=== PATIENT | male | born 1965 | race Caucasian/White ===

== ENCOUNTER → 2018-04-15 | Outpatient (CLI) | payer OTHER ==
--- NOTE | 2018-04-15 08:45 | RAD ---
Ankle-brachial indices, 04/15/2018: HISTORY: Claudication Resting MANN measurements were obtained. The right MANN is mildly decreased at 0.79. The left MANN of 0.95 is within normal limits. Electronically signed by: Carlos Mc MD (04/15/2018 8:43 AM) [facility]
== END | disposition home or self-care (01) ==
LOC: US 07:13
PROVIDERS: ATTEND Family Medicine
DX: I73.89 Other specified peripheral vascular diseases (principal)
CPT/HCPCS: 93922

== ENCOUNTER → 2018-04-23 | Outpatient (CLI) | payer OTHER ==
--- NOTE | 2018-04-23 09:52 | RAD ---
MRI Cervical Spine Without Contrast History: Neck pain, worsening left arm radiculopathy Technique: Multiplanar, multi sequential noncontrast MR imaging was performed of the cervical spine. Comparison: None Findings: Cervical vertebral body stature and AP alignment are within normal limits. Cervical cord caliber is within normal limits without significant focal signal abnormality. There is no significant abnormality of the cervical medullary junction. There is pwnw-xy-kutnmztt T2 and STIR hyperintense signal abnormality of the visualized clark. There is mild degenerative disc disease at C6-7, mild disc desiccation at more superior levels. There is no significant marrow edema. Not fully included, there is at least moderate right maxillary sinus mucosal thickening. C2-C3: Spinal canal and neural foramina are adequate. C3-C4: Neural foramina and spinal canal are adequate. C4-C5: There is very shallow posterior central protrusion. Neural foramina and spinal canal are adequate. There is mild facet degenerative change. C5-C6: There is minimal posterior disc osteophyte complex and bulge. Central canal is adequate about 12 mm. There is bilateral facet degenerative change. There is mild uncovertebral degenerative change. There is minimal narrowing of the right neural foramen, ancq-ru-ksigqyvp narrowing on the left. C6-C7: There is posterior protrusion greatest centrally and in the left lateral recess, possibly very small extrusion extending above the intervertebral disc space. There is indentation upon the ventral thecal sac, central canal adequate about 11 to 12 mm, mild left lateral recess stenosis. There is also extent of protrusion to the anterior left neural foramen, severe narrowing of the left neural foramen. There is also mild uncovertebral degenerative change greater on the left. Right neural foramen is overall adequate. C7-T1: Spinal canal is adequate. There is mild uncovertebral degenerative change. There is mild neural foramina compromise bilaterally. Impression: 1. There is protrusion and possibly very small extrusion extending above the C6-7 intervertebral disc space resulting in mild left lateral recess stenosis, also contributes to severe narrowing of the left C6-7 neural foramen. There is spev-fy-gylxtgpl left and mild right C5-C6 neural foramina compromise due to facet and uncovertebral degenerative change, minimal narrowing bilaterally at C7-T1. There is mild degenerative disc disease C6-7. 2. There is mild to moderate T2 and STIR hyperintense signal of the visualized clark, nonspecific findings possibly due to chronic microvascular ischemic disease unless there is history or suspicion for inflammatory demyelinating disease. 3. There is at least moderate mucosal thickening of the visualized right maxillary sinus. Electronically signed by: Mitch Arroyo MD (04/23/2018 9:48 AM) [id number]
== END | disposition home or self-care (01) ==
LOC: MRI 08:32
PROVIDERS: ATTEND Family Medicine
DX: M50.323 Other cervical disc degeneration at C6-C7 level (principal); J34.89 Other specified disorders of nose and nasal sinuses; M48.03 Spinal stenosis, cervicothoracic region; M48.02 Spinal stenosis, cervical region; M50.221 Other cervical disc displacement at C4-C5 level
CPT/HCPCS: 72141

== ENCOUNTER → 2019-08-01 | Outpatient (CLI) | payer OTHER ==
--- NOTE | 2019-08-01 12:16 | RAD ---
MRI Lumbar Spine without contrast History: Low back pain, right leg weakness Technique: Multiplanar, multi sequential noncontrast MR imaging was performed of the lumbar spine. Comparison: None Findings: Lumbar vertebral body stature is maintained. There is minimal posterior subluxation L5 relative to S1. Conus terminates at the superior aspect L1. There is posterior annular tear L4-5, small anterior annular tears L2-3 through L5-S1. There is moderate to severe degenerative disc disease L5-S1, tgbe-ey-xlwotwtd L4-5 degenerative disc disease. There is small hemangioma of the left L2 vertebral body inferiorly. There is degenerative endplate change greater on the left L5-S1, trace associated edema likely degenerative in etiology. L1-L2: This level was not included on the axial images, spinal canal and neural foramina overall adequate. L2-L3: Neural foramina and spinal canal are adequate. L3-L4: There is mild buckling of the ligamentum flavum. Neural foramina and spinal canal are adequate. L4-L5: There is a posterior protrusion greatest centrally up to about 2 to 3 mm AP. There is minimal buckling of the ligamentum flavum. There is mild narrowing of the far lateral recesses bilaterally. There is very mild inferior neural foramina compromise greater on the left by minimal disc osteophyte complex L5-S1: There is posterior bulge about 2-3 mm AP superimposed on the posteriorly subluxed L5 vertebral body margin. Bulge is near the descending S1 nerve roots greater on the left without significant displacement. There is very mild narrowing of the far left lateral recess. There is mild left facet degenerative change. There is minimal disc osteophyte complex in the inferior neural foramina greater on the left. There is mild to moderate narrowing of the left neural foramen, mild overall narrowing on the right. Disc osteophyte complex is near the undersurfaces of the exiting L5 nerve roots bilaterally without significant displacement. Impression: 1. There is degenerative disc disease greatest at L5-S1 and to lesser degree at L4-5. There is mild narrowing of the far lateral recesses bilaterally at L4-5, very mild narrowing of the left lateral recess at L5-S1 as described. 2. There is jyoh-jd-yhztqgvt left and mild right L5-S1 neural foramina compromise, very mild narrowing of the L4-5 neural foramina greater on the left. 3. There is minimal posterior subluxation L5 relative to S1. Electronically signed by: Mitch Arroyo MD (08/01/2019 12:13 PM) [facility]
== END | disposition home or self-care (01) ==
LOC: MRI 10:42
PROVIDERS: ATTEND Family Medicine
DX: M51.37 Other intervertebral disc degeneration, lumbosacral region (principal); M51.27 Other intervertebral disc displacement, lumbosacral region; M47.817 Spondylosis without myelopathy or radiculopathy, lumbosacral region; M48.07 Spinal stenosis, lumbosacral region
CPT/HCPCS: 72148

== ENCOUNTER 2020-06-12 15:42 | Emergency (ER) | payer OTHER ==
[~2020-06-12] VITALS: Ht 175.3 cm; Wt 72.7 kg
--- NOTE | 2020-06-12 16:46 | PHYS DOC ---
Past Medical History Past Medical History: High Cholesterol, Hypertension, PR, Other Additional Past Medical Histor: HEP C Past Surgical History: Angioplasty, Other Additional Past Surgical Histo: HEART STENT X 1 2016 Smoking Status: Current Every Day Smoker Alcohol Use: None General Adult EDM: Chief Complaint: LOWER EXT PAIN HPI: HPI: Patient is a 55 year old male patient presents with right lower leg pain, swe lling, erythema. States he had a stent placed in his leg approximately 6 years ago and feels it may be blocked. States he has had some increased discomfort when walking, increased swelling in his feet, with some redness on his feet as well. States has been taking his pain medication which have been helping a little bit, however he continues to have discomfort. Denies any trauma, states he has started his primary care but they are unable to see him for another 2 weeks Review of Systems: Review of Systems: Constitutional: Denies fever or chills. [] Eyes: Denies change in visual acuity. [] HENT: Denies nasal congestion or sore throat. [] Respiratory: Denies cough or shortness of breath. [] Cardiovascular: Denies chest pain or edema. [] GI: Denies abdominal pain, nausea, vomiting, bloody stools or diarrhea. [] : Denies dysuria. [] Musculoskeletal: Denies back pain or joint pain. Reports pain to distal right foot [] Integument: Denies rash. States redness to his right foot [] Neurologic: Denies headache, focal weakness or sensory changes. [] Endocrine: Denies polyuria or polydipsia. [] Lymphatic: Denies swollen glands. [] Psychiatric: Denies depression or anxiety. [] Heart Score: Risk Factors: Risk Factors: DM, Current or recent (<one month) smoker, HTN, HLP, family history of CAD, obesity. Risk Scores: Score 0 - 3: 2.5% MACE over next 6 weeks - Discharge Home Score 4 - 6: 20.3% MACE over next 6 weeks - Admit for Clinical Observation Score 7 - 10: 72.7% MACE over next 6 weeks - Early Invasive Strategies Physical Exam: PE: Constitutional: Well developed, well nourished, no acute distress, non-toxic appearance. [] HENT: Normocephalic, atraumatic, bilateral external ears normal, oropharynx moist, no oral exudates, nose normal. [] Eyes: PERRLA, EOMI, conjunctiva normal, no discharge. [] Neck: Normal range of motion, no tenderness, supple, no stridor. [] Cardiovascular:Heart rate regular rhythm, no murmur [] Lungs & Thorax: Bilateral breath sounds clear to auscultation [] Abdomen: Bowel sounds normal, soft, no tenderness, no masses, no pulsatile masses. [] Skin: Warm, dry, superior aspect of right distal foot noted erythematous, delayed capillary refill. Foot feels warm. Unable to palpate pedal pulse[] Back: No tenderness, no CVA tenderness. [] Extremities: No tenderness, no cyanosis, no clubbing, ROM intact, no edema. Full ROM noted to foot, toes. Negative Rehan's sign. [] Neurologic: Alert and oriented X 3, normal motor function, normal sensory function, no focal deficits noted. [] Psychologic: Affect normal, judgement normal, mood normal. [] Current Patient Data: Vital Signs: Vital Signs Date Time Temp Pulse Resp B/P (MAP) Pulse Ox O2 Delivery O2 Flow Rate FiO2 06/12/20 15:59 98.1 88 17 159/77 (104) 97 Room Air 98.1 EKG: EKG: [] Radiology/Procedures: Radiology/Procedures: PROCEDURE: VENOUS LOWER EXTREMITY RIGHT Exam: Right lower extremity venous duplex study INDICATION: Leg swelling TECHNIQUE: Using a combination of real-time ultrasound imaging and color-flow and pulse Doppler imaging techniques along with graded compression and augmentation, duplex evaluation of the deep venous systems of rightlower extremity was performed. Multiple images were obtained. Findings: There is no sonographic evidence for deep venous thrombosis involving the visualized deep venous structures of the right lower extremity. IMPRESSION: No acute DVT in the right lower extremities. Electronically signed by: Flavio Santamaria MD (06/12/2020 5:27 PM) [facility] [] Course & Med Decision Making: Course & Med Decision Making Pertinent Labs and Imaging studies reviewed. (See chart for details) [] Reviewed imaging results with patient and family, without noted blood clots today for ultrasound. Patient does have a follow-up appointment with cardiology on June 24 and for further imaging on his legs and arteriogram. Patient had seen podiatry earlier today, and has plan to follow-up with them tomorrow regarding additional evaluation of his foot concerns. Will provide patient pain medication with plan for patient to follow-up tomorrow with podiatry Laury Disclaimer: Laury Disclaimer: This electronic medical record was generated, in whole or in part, using a voice recognition dictation system. Departure Departure Impression: Primary Impression: Left foot pain Disposition: 01 DC HOME SELF CARE/HOMELESS Condition: GOOD Referrals: JOSEMANUEL ORTEGA MD (PCP) Patient Instructions: Pain, Neuropathic Additional Instructions: As discussed, take the pain medication as prescribed. Keep your follow-up appointments with cardiology later this month, consult podiatry tomorrow. We did a venous Doppler ultrasound on your leg today, which did not show any abnormalities. Scripts Tramadol Hcl (TRAMADOL HCL) 50 Mg Tablet 50 MG PO Q6HRS PRN for PAIN for 3 Days, #12 TAB Prov: MELITON VIGIL APRN 06/12/20 MELITON VIGIL APRN Jun 12, 2020 16:46
--- NOTE | 2020-06-12 17:30 | RAD ---
Exam: Right lower extremity venous duplex study INDICATION: Leg swelling TECHNIQUE: Using a combination of real-time ultrasound imaging and color-flow and pulse Doppler imaging techniques along with graded compression and augmentation, duplex evaluation of the deep venous systems of rightlower extremity was performed. Multiple images were obtained. Findings: There is no sonographic evidence for deep venous thrombosis involving the visualized deep venous structures of the right lower extremity. IMPRESSION: No acute DVT in the right lower extremities. Electronically signed by: Flavio Santamaria MD (06/12/2020 5:27 PM) [facility]
[2020-06-12 18:04] LABS: BASO % 1 % (0-3); EOS # 0.1 x10^3/uL (0.0-0.7); EOS % 2 % (0-3); HEMATOCRIT 38.5 % (39.0-53.0); HEMOGLOBIN 13.1 g/dL (13.0-17.5); LYMPH # 1.5 x10^3/uL (1.0-4.8); LYMPH % 29 % (24-48); MEAN CORPUSCULAR HEMOGLOBIN 33 pg (25-35); MEAN CORPUSCULAR HGB CONC 34 g/dL (31-37); MEAN CORPUSCULAR VOLUME 96 fL (79-100); MONO # 0.6 x10^3/uL (0.0-1.1); MONO % 12 % (0-9); NEUT % 57 % (31-73); PLATELET COUNT 131 x10^3/uL (140-400); RED CELL DISTRIBUTION WIDTH 13.3 % (11.5-14.5); WHITE BLOOD COUNT 5.2 x10^3/uL (4.0-11.0)
[2020-06-12 18:18] LABS: CALCIUM 9.8 mg/dL (8.5-10.1); CREATININE 0.7 mg/dL (0.7-1.3); GFR 116.7; POTASSIUM 4.1 mmol/L (3.5-5.1)
[2020-06-12 18:24] LABS: ALBUMIN 3.6 g/dL (3.4-5.0); ALBUMIN/GLOBULIN RATIO 1.1 (1.0-1.7); TOTAL BILIRUBIN 0.2 mg/dL (0.2-1.0); URIC ACID 4.2 mg/dL (3.5-7.2)
[2020-06-12] MEDS ORDERED: TRAM50TA PO ×2 (18:43→18:44)
[2020-06-12 18:45] VITALS: BP 147/83
== END 2020-06-12 18:51 | disposition home or self-care (01) ==
LOC: ER 15:42 → MERGE 15:42 → ER 18:51
DX: M79.672 Pain in left foot (principal); E78.00 Pure hypercholesterolemia, unspecified; I10 Essential (primary) hypertension; I25.2 Old myocardial infarction; F17.200 Nicotine dependence, unspecified, uncomplicated; Z95.5 Presence of coronary angioplasty implant and graft
CPT/HCPCS: 36415; 80053; 84550; 85025; 93971; 99285-25

== ENCOUNTER → 2020-06-13 | Outpatient (CLI) | payer OTHER ==
[2020-06-12 18:45] VITALS: BP 147/83
[~2020-06-13] MED LIST: TRAM50TA PO
--- NOTE | 2020-06-13 17:04 | RAD ---
INDICATION: Reason: Peripheral Arterial Disease / Spl. Instructions: / History: COMPARISON: MANN from April 2018 FINDINGS: Spectral Doppler, color and grayscale ultrasound images are obtained through the bilateral leg arterial system. Monophasic waveforms are seen throughout the right leg arterial system including within the right common femoral artery. There is severe multifocal plaque throughout the vasculature. There is progressive decrease in phasicity more distally within the right leg arterial system with very monophasic waveforms with tardus parvus morphology distally. There is also monophasic waveforms seen throughout the left leg arterial system including within the common femoral artery with multifocal plaque seen. Elevated velocity within the proximal aspect of the left superficial femoral artery measuring up to 205 cm/S. IMPRESSION: * Monophasic waveforms are seen throughout the bilateral legs with multifocal plaque seen throughout the bilateral leg arterial system. This is more severe on the right where there is severe waveform alteration with loss of phasicity. This can be seen with multifocal regions of hemodynamically significant stenosis involving the right greater than left lower extremity. Given that altered morphology is seen within the common femoral artery there may be more proximal regions of hemodynamically significant stenosis in addition to the bilateral leg pathology. Electronically signed by: Red Curry MD (06/13/2020 5:00 PM) [id number]
== END ==
LOC: US 14:55
PROVIDERS: ATTEND Internal Medicine Cardiovascular Disease
DX: I70.203 Unspecified atherosclerosis of native arteries of extremities, bilateral legs (principal)
CPT/HCPCS: 93925

== ENCOUNTER 2020-06-15 07:03 | Outpatient (CLI) | payer OTHER ==
[2020-06-15] VITALS (10 sets, daily range): BP systolic 119–156; BP diastolic 75–90
[~2020-06-15] VITALS: Ht 175.3 cm; Wt 70.3 kg
[~2020-06-15 07:03] MED LIST changes: -ASCO500C PO; -ASPI-886 PO; -CARV3.1210 PO; -CLOP75TA PO; -ENAL10TA11 PO; -GABA300C18 PO; -HYDR25CA75 PO; -INSU300I SQ; -LOVA20TA2 PO; -METF10007 PO; -MULT1CAP6 PO; -VARE1TAB21 PO; -VITA1CAP PO
[2020-06-15] MEDS ORDERED: IODIXANOL 320 MG/ML 100 ML VIAL. ONE (07:34)
[2020-06-15] MEDS ORDERED: LIDOCAINE 1% Multi-Dose 20 ML VIAL. ONE (07:47)
[2020-06-15 07:50] LABS: HEMATOCRIT 40.8 % (39.0-53.0); HEMOGLOBIN 14.1 g/dL (13.0-17.5); RED BLOOD COUNT 4.24 x10^6/uL (4.30-5.70); RED CELL DISTRIBUTION WIDTH 13.4 % (11.5-14.5); WHITE BLOOD COUNT 5.9 x10^3/uL (4.0-11.0)
[2020-06-15 07:51] LABS: CALCIUM 9.7 mg/dL (8.5-10.1); CREATININE 0.9 mg/dL (0.7-1.3); GFR 87.3; POTASSIUM 4.3 mmol/L (3.5-5.1)
[2020-06-15 08:15] LABS: PROTHROMBIN TIME PATIENT 12.9 SEC (11.7-14.0)
[2020-06-15] MEDS ORDERED: INSU300I SQ (08:30)
[2020-06-15] MEDS ORDERED: VITA1CAP PO (08:30)
[2020-06-15] MEDS ORDERED: METF10007 PO (08:30)
[2020-06-15] MEDS ORDERED: HYDR25CA75 PO (08:30)
[2020-06-15] MEDS ORDERED: MULT1CAP6 PO (08:30)
[2020-06-15] MEDS ORDERED: ASCO500C PO (08:30)
[2020-06-15] MEDS ORDERED: CARV3.1210 PO (08:30)
[2020-06-15] MEDS ORDERED: ENAL10TA11 PO (08:30)
[2020-06-15] MEDS ORDERED: GABA300C18 PO (08:30)
[2020-06-15] MEDS ORDERED: LOVA20TA2 PO (08:30)
[2020-06-15] MEDS ORDERED: ASPI-886 PO (08:30)
[2020-06-15] MEDS ORDERED: MIDAZOLAM HCL/PF 2 MG/2 ML VIAL. ONE (08:56)
[2020-06-15] MEDS ORDERED: fentaNYL PF VIAL 100 MCG/2 ML VIAL ONE (08:57)
[2020-06-15] MEDS ORDERED: HEPARIN for IV BOLUS 10,000 UNIT/10 ML VIAL. ONE ×2 (08:58→10:00)
[2020-06-15] MEDS ORDERED: VERAPAMIL 5 MG/2 ML VIAL. ONE (08:58)
[2020-06-15] MEDS ORDERED: NITROGLYCERIN 200 MCG/2 ML SYRINGE FOR CATH/VASC LAB. ONE ×2 (08:59→11:14)
[2020-06-15] MEDS ORDERED: dilTIAZem IV PUSH 25 MG/5 ML VIAL ONE (10:02)
[2020-06-15] MEDS ORDERED: HEPARIN for IV BOLUS 10,000 UNIT/10 ML VIAL. IART ONE (10:30)
[2020-06-15] MEDS ORDERED: HEPARIN for IV BOLUS 10,000 UNIT/10 ML VIAL. IV ONE (10:30)
[2020-06-15] MEDS ORDERED: IODIXANOL 320 MG/ML 100 ML VIAL. IART ONE ×2 (10:30→11:15)
[2020-06-15] MEDS ORDERED: NITROGLYCERIN 200 MCG/2 ML SYRINGE FOR CATH/VASC LAB. IART ONE (10:30)
[2020-06-15] MEDS ORDERED: MIDAZOLAM HCL/PF 2 MG/2 ML VIAL. IV ONE (10:30)
[2020-06-15] MEDS ORDERED: VERAPAMIL 5 MG/2 ML VIAL. IART ONE (10:30)
[2020-06-15] MEDS ORDERED: fentaNYL PF VIAL 100 MCG/2 ML VIAL IV ONE (10:30)
[2020-06-15] MEDS ORDERED: LIDOCAINE 1% Multi-Dose 20 ML VIAL. INJ ONE (10:30)
[2020-06-15] MEDS ORDERED: CONTRAST GIVEN. MC PRN (10:45)
[2020-06-15] MEDS ORDERED: CLOPIDOGREL BISULFATE 75 MG TABLET ONE (11:06)
--- NOTE | 2020-06-15 11:11 | PDOC ---
MODERATE SEDATION ASSESSMENT RISKS/ALTERNATIVES Risks/Alternatives Risks and alternatives of this type of sedation and procedure discussed with: RISK/ALTERNATIVES: Patient H & P ON CHART H & P H & P on chart and reviewed for co-morbid conditions and appropriate labs. H&P ON CHART: Yes STATUS PREG STATUS ASSESSED: N/A MEDS/ALLERGIES REVIEWED Meds/Allergies Reviewed Medications and Allergies including time and route of recently administered narcotics and sedatives. MEDS/ALLERGIES REVIEWED: Yes ASA RATING ASA RATING: III AIRWAY ASSESSMENT Airway Assessment Airway patency, oral function limitations, presence of caps, crowns, dentures, partials, and ability to extend neck assessed. AIRWAY ASSESSMENT: Yes MALLAMPATI SCORE MALLAMPATI SCORE: II PRE-SEDATION ASSESSMENT PRE-SEDATION ASSESSMENT: Yes MARCE POWELL MD Jun 15, 2020 11:11
[2020-06-15] MEDS ORDERED: ASPIRIN CHEWABLE 81 MG TABLET. PO ONE (11:15)
[2020-06-15] MEDS ORDERED: IV 1/2 NORMAL SALINE 1,000 ML IV SCH (11:15)
[2020-06-15] MEDS ORDERED: CLOPIDOGREL BISULFATE 75 MG TABLET PO ONE (11:15)
[2020-06-15] MEDS ORDERED: ASPIRIN 325 MG TABLET PO ONE (11:15)
--- NOTE | 2020-06-15 13:33 | CARD ---
MR#: [id number] Date of Study: 06/15/2020 Ordering Physician: MARCE LOCK, Referring Physician: MARCE LOCK, Tech: Ashley Shearer APPROVED REPORT Patient StatusOUT-PATIENT Dental Director: Ashley Shearer Procedure(s) performed: 1. Aortogram with bilateral lower extremity runoff via right transradial trang boone 2. Successful atherectomy/OFFICE SERVICE COORDINATOR/stent placement to right external iliac artery and atherectomy/OFFICE SERVICE COORDINATOR to right common femoral artery fl time: 30.5 mins dose: 83 gycm2 contrast: 147 ml moderate sedation: 112 MINS INDICATION FOR PROCEDURE The indication(s) include : Peripheral artery disease with critical limb ischemia. PROCEDURE NARRATIVE After explaining the risk, benefits and alternative options, informed consent was obtained from patie nt. Patient was brought to the cardiac Front Office Medical Assistant and his right wrist was prepped and draped in the us ual fashion after confirming a positive modified Claude's test. Arterial access was obtained in the r chest[place] centert radial artery and a 6 Latvian sheath was inserted. 4F PVI multicurve catheter was then advanced under fluoroscopic guidance and with the tip positioned in the distal descending aorta, aorto iliac a ngiography was performed. This was then advanced into the right common iliac artery and selective ri t lower extremity angiography was performed. Subsequently, with the tip positioned in the left com mon iliac artery, selective left lower extremity angiography was performed. The following findings w ere noted: FINDINGS 1. No significant stenosis involving the distal descending aorta 2. 20% stenosis involving the distal segment of the right common iliac artery. The previously place d stent in the left common iliac artery was widely patent. 3. The right external iliac artery showed 100% long chronic total occlusion with reconstitution of t he common femoral artery via collaterals. The left external iliac artery showed 30% stenosis. 4. The right common femoral artery showed calcified 70% stenosis. The left common femoral artery sh owed 30% stenosis. 5. The right superficial femoral artery showed 70% calcified stenosis in the proximal segment, 2 les ions with 70% and 90% stenosis severity in the mid segment and 100% chronic occlusion in the distal s egment with distal reconstitution via collaterals. The left superficial femoral artery showed 70% st enosis in the proximal segment, 60 to 70% stenosis in the distal segment. 6. The right popliteal artery did not show any significant stenosis. The left popliteal artery show ed 50% stenosis. 7. There is three-vessel runoff below the knee right lower extremity. The distal segments were not well visualized due to poor filling from chronic total occlusions described above. The left lower ex tremity also showed three-vessel runoff below the knee. The left anterior tibial artery showed 80% s tenosis in the proximal segment. INTERVENTION The catheter and the sheath were exchanged to a 6 Latvian long destination sheath and the tip was adva nced into the right common iliac artery. The chronic total occlusion of the right external iliac art freedom and the lesion in the common femoral artery were crossed with a 0.035 inch Glidewire advantage wi th backup support from a Navicross catheter. Contrast injections through the catheter confirmed intr aluminal position. The wire was then exchanged to a PersonSpot guidewire. Multiple orbital atherectomy p asses were then performed within the external iliac and common femoral arteries using 1.75 CSI diamon dback atherectomy catheter. Subsequently, both these lesions were dilated with a 5.0 x 100 Terumo R2 P Metacross balloon. The right external iliac artery was then dilated with a 7.0 x 100 Terumo R2P Me tacross balloon and treated successfully with a 7.0 x 18 mm Terumo Misago self-expanding stent. Foll ow-up angiography showed resolution of the lesions with good distal flow. Patient tolerated the proc edure well. Hemostasis in the right wrist was achieved using TR band. There were no immediate compl ications. Conclusion 1. Bilateral lower extremity peripheral vascular disease as described above. The previously placed stent in the left common iliac artery was patent. 2. Successful atherectomy/OFFICE SERVICE COORDINATOR/stent placement to right external iliac artery and atherectomy/OFFICE SERVICE COORDINATOR to the right common femoral artery. Recommendations 1. Plan for staged atherectomy/OFFICE SERVICE COORDINATOR to the chronic total occlusion of the right superficial femoral a rtery in 2 weeks. 2. Vascular risk factor modification including smoking cessation. Signed by : Marce Lock, Electronically Approved : 06/15/2020 12:48:31
--- NOTE | 2020-06-15 14:41 | NUR ---
discharge instructions reviewed with pt and family. Pt ambulated and tolerated PO. Sloan chavarria'umesh Plavix 75mg PO called in to patients pharmacy. Pt instructed to hold metformin for 28 hours Addendum: 06/15/20 at 1446 by Alessandra Gant RN hold metformin for 48 hours
--- NOTE | 2020-06-15 16:39 | CARD ---
MR#: [id number] Date of Study: 06/15/2020 Ordering Physician: MARCE LOCK, Referring Physician: MARCE LOCK, Campbell: Greg Pina [facility] APPROVED REPORT EXAM: Two-dimensional and M-mode echocardiogram with Doppler and color Doppler. Other Information Quality : AverageHR: 72bpm Rhythm : NSR INDICATION ischemic cardiomyopathy, peripheral arterial disease 2D DIMENSIONS RVDd2.8 (2.9-3.5cm)Left Atrium(2D)2.8 (1.6-4.0cm) IVSd1.1 (0.7-1.1cm)Aortic Root(2D)3.5 (2.0-3.7cm) LVDd4.6 (3.9-5.9cm)PWd1.1 (0.7-1.1cm) LA Aslwrk37 (18-58mL)LVDs3.9 (2.5-4.0cm) FS (%) 15.1 %SV30.6 ml LVEF(%)32.1 (>50%) Aortic Valve AoV Peak Darron.117.5cm/Bryson Peak GR.5.5mmHg LVOT Peak Darron.81.1cm/s Mitral Valve MV E Aaqswyxz52.2cm/sMV DECEL [id number] MV A Pefqrppe73.2cm/sE/A Ratio0.8 MV A Tyrqlink484wu Pulmonary Valve PV Peak Oqsgfgcm67.0cm/s Tricuspid Valve TR P. Dzagmimi259wb/sTR Peak Gr.26mmHg Pulmonary Vein S1 Qizvlhaw63.1cm/sD2 Jhndcinz10.9cm/s PVa [id number] LEFT VENTRICLE The left ventricle is normal size. There is normal left ventricular wall thickness. The left ventricu lar systolic function is normal. The Ejection Fraction is 50-55%. No regional wall motion abnormaliti es noted. Transmitral Doppler flow pattern is Grade I-abnormal relaxation pattern. No left ventricle thrombus noted on this study. There is no ventricular septal defect visualized. There is no left vent ricular aneurysm. There is no mass noted in the left ventricle. RIGHT VENTRICLE The right ventricle is normal size. There is normal right ventricular wall thickness. The right ventr icular systolic function is normal. ATRIA The left atrium size is normal. The right atrium size is normal. The interatrial septum is intact wit h no evidence for an atrial septal defect or patent foramen ovale as noted on 2-D or Doppler imaging. AORTIC VALVE The aortic valve is normal in structure and function. No aortic regurgitation is present. There is no aortic valvular stenosis. There is no aortic valvular vegetation. MITRAL VALVE The mitral valve is normal in structure and function. There is no evidence of mitral valve prolapse. There is no mitral valve stenosis. Doppler and Color-flow revealed trace mitral regurgitation. TRICUSPID VALVE The tricuspid valve is normal in structure and function. Doppler and Color Flow revealed trace tricus pid regurgitation with PAP of 29 mmHg. There is no tricuspid valve prolapse or vegetation. There is n o tricuspid valve stenosis. PULMONIC VALVE The pulmonary valve is normal in structure and function. There is no pulmonic valvular regurgitation. There is no pulmonic valvular stenosis. GREAT VESSELS The aortic root is normal in size. The ascending aorta is normal in size. The pulmonary artery is nor mal. The IVC is normal in size and collapses >50% with inspiration. PERICARDIAL EFFUSION There is no pleural effusion. There is no evidence of significant pericardial effusion. Critical Notification Critical Value: No <Conclusion> The left ventricular systolic function is normal. The Ejection Fraction is 50-55%. No regional wall motion abnormalities noted. Transmitral Doppler flow pattern is Grade I-abnormal relaxation pattern. Trace mitral regurgitation. Trace tricuspid regurgitation with PAP of 29 mmHg. There is no evidence of significant pericardial effusion. Signed by : Marce Lock, Electronically Approved : 06/15/2020 16:38:47
[2020-06-16] MEDS ORDERED: CLOPIDOGREL BISULFATE 75 MG TABLET PO SCH (08:00)
== END 2020-06-15 14:55 | disposition home or self-care (01) ==
LOC: CCL 07:03
PROVIDERS: ATTEND Internal Medicine Cardiovascular Disease
DX: I70.211 Atherosclerosis of native arteries of extremities with intermittent claudication, right leg (principal); I77.1 Stricture of artery; I25.10 Atherosclerotic heart disease of native coronary artery without angina pectoris; I25.5 Ischemic cardiomyopathy; I99.8 Other disorder of circulatory system; I10 Essential (primary) hypertension; E78.5 Hyperlipidemia, unspecified; E11.40 Type 2 diabetes mellitus with diabetic neuropathy, unspecified; I25.2 Old myocardial infarction; Z72.0 Tobacco use; Z68.22 Body mass index [BMI] 22.0-22.9, adult; Z83.3 Family history of diabetes mellitus; Z95.5 Presence of coronary angioplasty implant and graft; Z79.899 Other long term (current) drug therapy; Z98.890 Other specified postprocedural states; Z79.82 Long term (current) use of aspirin; Z79.84 Long term (current) use of oral hypoglycemic drugs
CPT/HCPCS: 36415; 37221; 37225; 75625; 75716; 80048; 85027; 85610; 93306; 99152; 99153; C1713; C1724; C1725; C1769; C1876; C1892; C1894; J1644; J2250; J3010; J3490; J7030; Q9967

== ENCOUNTER → 2020-06-15 | Outpatient (CLI) | payer OTHER ==
[~2020-06-15] MED LIST changes: +ASCO500C PO; +ASPI-886 PO; +CARV3.1210 PO; +CLOP75TA PO; +ENAL10TA11 PO; +GABA300C18 PO; +HYDR25CA75 PO; +INSU300I SQ; +LOVA20TA2 PO; +METF10007 PO; +MULT1CAP6 PO; +VARE1TAB21 PO; +VITA1CAP PO
[2020-07-17 09:27] VITALS: BP 141/82
== END ==
LOC: LAB 07:04
PROVIDERS: ATTEND Internal Medicine Cardiovascular Disease
DX: Z01.812 Encounter for preprocedural laboratory examination (principal); I25.5 Ischemic cardiomyopathy; Z20.828 Contact with and (suspected) exposure to other viral communicable diseases
CPT/HCPCS: 87426; C9803; U0003

== ENCOUNTER → 2020-07-03 | Outpatient (CLI) | payer OTHER ==
[2020-06-12 18:45] VITALS: BP 147/83
[~2020-07-03] MED LIST changes: +ASCO500C PO; +ASPI-886 PO; +CARV3.1210 PO; +ENAL10TA11 PO; +GABA300C18 PO; +HEPARIN for ARTERIAL LINE 0 ML ONE; +HYDR25CA75 PO; +INSU300I SQ; +IODIXANOL 320 MG/ML 100 ML VIAL. ONE; +LIDOCAINE 1% Multi-Dose 20 ML VIAL. ONE; +LOVA20TA2 PO; +METF10007 PO; +MULT1CAP6 PO; +VITA1CAP PO
--- NOTE | 2020-07-03 07:57 | NUR ---
Patient's COVID test positive. Patient to be rescheduled for procedure after 2 week quarantine. PIV removed, N95 mask provided. Patient escorted to car.
== END | disposition home or self-care (01) ==
LOC: CCL 06:58
PROVIDERS: ATTEND Internal Medicine Cardiovascular Disease
DX: Z20.828 Contact with and (suspected) exposure to other viral communicable diseases (principal); U07.1 COVID-19
CPT/HCPCS: 87426

== ENCOUNTER 2020-07-17 08:34 | Outpatient (CLI) | payer OTHER ==
[~2020-07-17] VITALS: Ht 175.3 cm; Wt 70.3 kg
[2020-07-17] VITALS (18 sets, daily range): BP systolic 111–142; BP diastolic 70–82
[~2020-07-17 08:34] MED LIST changes: -HEPARIN for ARTERIAL LINE 0 ML ONE; -LIDOCAINE 1% Multi-Dose 20 ML VIAL. ONE
[2020-07-17] MEDS ORDERED: CLOP75TA PO (09:04)
[2020-07-17] MEDS ORDERED: VARE1TAB21 PO (09:04)
[2020-07-17 09:28] LABS: CALCIUM 8.7 mg/dL (8.5-10.1); CREATININE 0.8 mg/dL (0.7-1.3); HEMATOCRIT 32.1 % (39.0-53.0); HEMOGLOBIN 10.7 g/dL (13.0-17.5); POTASSIUM 4.3 mmol/L (3.5-5.1); RED BLOOD COUNT 3.35 x10^6/uL (4.30-5.70); RED CELL DISTRIBUTION WIDTH 13.3 % (11.5-14.5); WHITE BLOOD COUNT 3.7 x10^3/uL (4.0-11.0)
[2020-07-17 09:38] LABS: PROTHROMBIN TIME PATIENT 12.9 SEC (11.7-14.0)
[2020-07-17] MEDS ORDERED: LIDOCAINE 1% PF 2 ML VIAL. ONE (10:14)
[2020-07-17] MEDS ORDERED: MIDAZOLAM HCL/PF 2 MG/2 ML VIAL. ONE ×2 (10:21→11:32)
[2020-07-17] MEDS ORDERED: fentaNYL PF VIAL 100 MCG/2 ML VIAL ONE (10:21)
[2020-07-17] MEDS ORDERED: VERAPAMIL 5 MG/2 ML VIAL. ONE (10:22)
[2020-07-17] MEDS ORDERED: NITROGLYCERIN 200 MCG/2 ML SYRINGE FOR CATH/VASC LAB. ONE ×2 (10:22→11:45)
[2020-07-17] MEDS ORDERED: HEPARIN for IV BOLUS 10,000 UNIT/10 ML VIAL. ONE ×2 (10:22→10:36)
[2020-07-17] MEDS ORDERED: NITROGLYCERIN 4 MG/20 ML SYRINGE for CATH LAB. ONE ×2 (10:37→11:00)
[2020-07-17] MEDS ORDERED: dilTIAZem IV PUSH 25 MG/5 ML VIAL ONE (10:37)
--- NOTE | 2020-07-17 10:45 | PDOC ---
MODERATE SEDATION ASSESSMENT RISKS/ALTERNATIVES Risks/Alternatives Risks and alternatives of this type of sedation and procedure discussed with: RISK/ALTERNATIVES: Patient H & P ON CHART H & P H & P on chart and reviewed for co-morbid conditions and appropriate labs. H&P ON CHART: Yes STATUS PREG STATUS ASSESSED: N/A MEDS/ALLERGIES REVIEWED Meds/Allergies Reviewed Medications and Allergies including time and route of recently administered narcotics and sedatives. MEDS/ALLERGIES REVIEWED: Yes ASA RATING ASA RATING: III AIRWAY ASSESSMENT Airway Assessment Airway patency, oral function limitations, presence of caps, crowns, dentures, partials, and ability to extend neck assessed. AIRWAY ASSESSMENT: Yes MALLAMPATI SCORE MALLAMPATI SCORE: II PRE-SEDATION ASSESSMENT PRE-SEDATION ASSESSMENT: Yes MARCE POWELL MD Jul 17, 2020 10:45
[2020-07-17] MEDS ORDERED: IODIXANOL 320 MG/ML 100 ML VIAL. IART ONE (12:15)
[2020-07-17] MEDS ORDERED: LIDOCAINE 1% PF 2 ML VIAL. INJ ONE (12:15)
[2020-07-17] MEDS ORDERED: HEPARIN for IV BOLUS 10,000 UNIT/10 ML VIAL. IART ONE (12:15)
[2020-07-17] MEDS ORDERED: MIDAZOLAM HCL/PF 2 MG/2 ML VIAL. IV ONE (12:15)
[2020-07-17] MEDS ORDERED: HEPARIN for IV BOLUS 10,000 UNIT/10 ML VIAL. IV ONE (12:15)
[2020-07-17] MEDS ORDERED: dilTIAZem IV PUSH 25 MG/5 ML VIAL IVP ONE (12:15)
[2020-07-17] MEDS ORDERED: fentaNYL PF VIAL 100 MCG/2 ML VIAL IV ONE (12:15)
[2020-07-17] MEDS ORDERED: VERAPAMIL 5 MG/2 ML VIAL. IART ONE (12:15)
[2020-07-17] MEDS ORDERED: NITROGLYCERIN 200 MCG/2 ML SYRINGE FOR CATH/VASC LAB. IART ONE (12:15)
[2020-07-17] MEDS ORDERED: IV 1/2 NORMAL SALINE 1,000 ML IV SCH (13:45)
--- NOTE | 2020-07-17 13:52 | CARD ---
MR#: [id number] Date of Study: 07/17/2020 Ordering Physician: MARCE LOCK, Referring Physician: MARCE LOCK, Tech: RT Kalyani (R) APPROVED REPORT Patient StatusOUT-PATIENT Life Skills Teacher: Brent Kaba RT (R) Procedure(s) performed: Right lower extremity angiography and orbital atherectomy/LINECASTING MACHINE KEYBOARD OPERATOR/stent placement to right superficial femoral artery via right transradial approach. Sedation Time: 118 Minutes Dose: 31.4gycm2 Contrast: 73mL Visipaque Fluoro Time: 36.9minutes Estimated blood loss: 20 ml INDICATION FOR PROCEDURE The indication(s) include : 55-year-old male with severe peripheral artery disease with critical limb ischemia recently underwent LINECASTING MACHINE KEYBOARD OPERATOR/stent to right external iliac artery and atherectomy/LINECASTING MACHINE KEYBOARD OPERATOR to right co mmon femoral artery. He presented today for staged atherectomy/LINECASTING MACHINE KEYBOARD OPERATOR to the right superficial femoral a rtery.. PROCEDURE NARRATIVE After explaining the risks, benefits and alternative options, informed consent was obtained from keith ent. Patient was brought to the cardiac Audit Tech and his right wrist was prepped and draped in the u sual fashion after confirming a positive modified Claude's test. Arterial access was obtained in the right radial artery and a 6 Guinean sheath was inserted. 6 Guinean PV multi curve catheter was then ad vanced under fluoroscopic guidance and with the tip positioned in the right common iliac artery, bel ctive right lower extremity angiography was performed. This showed widely patent recently placed steve nt in the right external iliac artery and confirmed the previously described tandem 70 to 80% stenosi s in the mid segment and 100% chronic total occlusion of the distal SFA/proximal popliteal artery wit h distal reconstitution from collaterals. The catheter and the sheath in the right radial artery were then exchanged to a 6 Guinean R2P Destinat ion slender sheath which was then advanced under fluoroscopic guidance and the tip was positioned in the right common iliac artery. The lesions including the chronic occlusion were then crossed with a 0.014 inch command ES guidewire with backup support from Foldeeser cath. This was then exchanged to a [employer] Wireless[employer] guidewire. Multiple orbital atherectomy passes were then performed within the lesions using CSI 1.5 diamondback peripheral orbital atherectomy catheter. The lesions were then dilated with a 5 .0 x 150 mm Terumo Crosstella balloon. The lesion was then treated successfully with 6.0 x 100 mm Te rumo Misago self-expanding stent. Follow-up angiography showed resolution of the lesions with good d istal flow. Patient tolerated the procedure well. Hemostasis was achieved using TR band. There wer e no immediate complications. Conclusion Successful orbital atherectomy/LINECASTING MACHINE KEYBOARD OPERATOR/stent placement to the right superficial femoral artery via right transradial approach. Recommendations Vascular risk factor modification and regular exercise regimen. Signed by : Marce Lock, Electronically Approved : 07/17/2020 13:51:36
--- NOTE | 2020-07-17 14:30 | NUR ---
Right radial site noted to have small amount of bleeding, no air removed from TR band. Will continue to monitor.
--- NOTE | 2020-07-17 15:00 | NUR ---
Right radial site continued to have slight bleeding, 2ml air added to TR band. Site remains soft, denies pain. Will continue to monitor.
--- NOTE | 2020-07-17 16:15 | NUR ---
Discharge Note: LEV HINDS Discharge instructions and discharge home medications reviewed with Patient and a copy given. All questions have been answered and understanding verbalized. RX for Plavix called to [facility] in [place] by Marisol eGe RN Dressing to R radial remains dry and intact, armboard in place The following instructions and handouts were given: moderate sedation, stent placement, radial site care, stent card provided Discontinued lines and drains: Peripheral IV intact. Patient discharged to Home or Self Care with Spouse via Wheelchair LINDA VILLANUEVA Addendum: 07/17/20 at 1618 by JAMAL CONSTANTINO RN Amended: Links added.
== END 2020-07-17 16:10 ==
LOC: CCL 08:34
PROVIDERS: ATTEND Internal Medicine Cardiovascular Disease
DX: I73.9 Peripheral vascular disease, unspecified (principal); I25.10 Atherosclerotic heart disease of native coronary artery without angina pectoris; I10 Essential (primary) hypertension; E78.00 Pure hypercholesterolemia, unspecified; M19.90 Unspecified osteoarthritis, unspecified site; E11.9 Type 2 diabetes mellitus without complications; F17.210 Nicotine dependence, cigarettes, uncomplicated; Z79.82 Long term (current) use of aspirin; Z79.84 Long term (current) use of oral hypoglycemic drugs; Z79.899 Other long term (current) drug therapy; Z98.890 Other specified postprocedural states
CPT/HCPCS: 36415; 37227; 75710; 80048; 85027; 85610; 99152; 99153; C1713; C1724; C1725; C1769; C1876; C1894; J1644; J2250; J3010; J3490; Q9967

== ENCOUNTER → 2020-10-24 | Outpatient (CLI) | payer OTHER ==
[2020-07-17 16:05] VITALS: BP 142/82
[~2020-10-24] MED LIST changes: +CLOP75TA PO; -IODIXANOL 320 MG/ML 100 ML VIAL. ONE; +REGADENOSON 0.4 MG/5 ML DISP.SYRIN. IV ONE; +VARE1TAB21 PO
--- NOTE | 2020-10-25 11:48 | RAD ---
MR#: [id number] Date of Study: 10/24/2020 Ordering Physician: MARCE POWELL, Referring Physician: CARTER COBIAN Tech: RT Gabby Bailon) (N) APPROVED REPORT Test Type: Pharmacological Stress Nurse/Tech: Kortney Kincaid R.N. Test Indications: cad Cardiac History: Mi x 4, high chol, PTCA, htn, dm Medications: see ehr Medical History: see ehr Resting ECG: SR Resting Heart Rate: 84 bpm Resting Blood Pressure: 138/71mmHg Pretest Chest Pain: No chest pain Nurse/Tech Notes lungs cta, heart tones regular Consent: The procedure was explained to the patient in lay terms. Informed consent was witnessed. Jean eout was entered into [employer]. History and Stress Test performed by RT Uvaldo (R) (N) Pharm. Details Pharmacologic stress testing was performed using 0.4mg per 5ml of regadenoson given intravenously ove r 7-10 seconds. Stress Symptoms No chest pain or symptoms. POST EXERCISE Reason for Termination: Infusion complete Target HR: No Max HR: 109 bpm Max Blood Pressure: 138/78mmHg Chest Pain: No. Arrhythmia: No. ST Change: No. INTERPRETATION Stress EKG Conclusion: No evidence of stress induced EKG changes. Imaging Protocol IMAGE PROTOCOL: Rest Tc-99m/stress Tc-99m 1 day Rest: Stress: Viability: Radiopharm.Tc99m OlzovctnePq58l Sestamibi Wlmn95mWo 30mCi Duration 15min. 10min. Img Date 10/24/2020 10/24/2020 Inj-Img Torp77llm. 60min. Rest Admin Site:IV - Right AntecubitalAdministrator:KEYLA Kendrick, ARRDavi (R)(N) Stress Admin Site: IV - Right AntecubitalAdministrator: RT Gabby Bailon)(N) STRESS DATA End Diast. Vol.117.0mlAv. Heart Rate86.0bpm End Syst. Vol.53.0mlCO Index BSA0.0L/min Myocardial Iibj276.0gEject. Dqzanbcz38.0% Stress Rates Pk. Fill Rate3.01EDV/secLVtime Pk. Fill 87.17msec Pk. Empty Rate4.35ESV/secLVtime Pk. Xbayh666.71msec 07/08 Pk. Fill2.10EDV/sec Stress Scores Regional WT0.00Summed WT6.00 Regional WM0.00Summed WM6.00 LV Perfusion Normal perfusion at stress. Significant subdiaphragmatic attenuation artifact noted on rest images. Wall Motion Low normal EF at 55% Mild global hypokinesis. LV Perf. Quant 17 Seg. SSS4.00 17 Seg. SRS15.00 17 Seg. SDS0.00 Stress Defect Extent (% LAD)0.00Rest Defect Extent (% LAD)15.00Rev. Defect Extent (% LAD)0.00 Stress Defect Extent (% LCX) 27.50Rest Defect Extent (% LCX)57.50Rev. Defect Extent (% LCX)0.00 Stress Defect Extent (% RCA)0.00Rest Defect Extent (% RCA)11.10Rev. Defect Extent (% RCA)0.00 Stress Defect Extent (% GEOFF)5.20Rest Defect Extent (% GEOFF)26.70Rev. Defect Extent (% GEOFF)0.00 Other Information Quality:Fair Risk Assessment: Low Risk Conclusion 1. No evidence of stress induced EKG changes. 2. Normal perfusion at stress. Rest images are suboptimal due to subdiaphragmatic attenuation artifac t. 3. Low normal EF at 55% 4. Low risk study overall. Signed by : Jim Felix, Electronically Approved : 10/25/2020 11:48:28
== END ==
LOC: NM 09:55
PROVIDERS: ATTEND Internal Medicine Cardiovascular Disease
DX: I25.10 Atherosclerotic heart disease of native coronary artery without angina pectoris (principal); I25.2 Old myocardial infarction; I10 Essential (primary) hypertension
CPT/HCPCS: 78452; 93017; A9500; J2785

== ENCOUNTER → 2021-04-25 | Outpatient (CLI) | payer OTHER ==
[2020-07-17 16:05] VITALS: BP 142/82
[~2021-04-25] MED LIST changes: -REGADENOSON 0.4 MG/5 ML DISP.SYRIN. IV ONE
--- NOTE | 2021-04-25 13:30 | CARD ---
MR#: [id number] Date of Study: 04/25/2021 Ordering Physician: MARCE POWELL, Referring Physician: MARCE POWELL, Tech: Yomaira Landrum [facility] APPROVED REPORT EXAM: Two-dimensional and M-mode echocardiogram with Doppler and color Doppler. Other Information Quality : AverageHR: 89bpm INDICATION Cardiac Disease: CAD RISK FACTORS Hypertension Hyperlipidemia Diabetes Smoking 2D DIMENSIONS RVDd2.9 (2.9-3.5cm)Left Atrium(2D)3.0 (1.6-4.0cm) IVSd1.1 (0.7-1.1cm)Aortic Root(2D)3.4 (2.0-3.7cm) LVDd5.1 (3.9-5.9cm)LVOT Diameter2.0 (1.8-2.4cm) PWd0.9 (0.7-1.1cm)LVDs4.5 (2.5-4.0cm) FS (%) 12.5 %SV33.8 ml Aortic Valve AoV Peak Darron.116.6cm/sAoV VTI22.5cm AO Peak GR.5.4mmHgLVOT Peak Darron.74.3cm/s LVOT VTI 14.43cmAO Mean GR.3mmHg LEXY (VMAX)1.86hm1XFY (VTI)2.04cm2 Mitral Valve MV E Tujnypid93.7cm/sMV DECEL NDWH553qc MV A Uhtcfsbp80.5cm/sMV E Mean Gr.1mmHg MV ILW23kaD/A Ratio0.9 MVA (PHT)2.80cm2 TDI E/Lateral E'4.6E/Medial E'6.7 Pulmonary Valve PV Peak Rizdizsi33.8cm/sPV Peak Grad.2mmHg Tricuspid Valve TR P. Pkkagwrr762lq/sRAP XAYRSUBV2coPp TR Peak Gr.67vlJbEXFU10kaHh Pulmonary Vein S1 Mwrwvykm15.9cm/sD2 Wzxqvtvq73.8cm/s PVa sdtdaxqn65luus LEFT VENTRICLE The left ventricle is normal size. There is normal left ventricular wall thickness. The left ventricu lar systolic function is normal and the ejection fraction is within normal range. Left ventricular ej ection fraction is 50 to 55%. There is normal LV segmental wall motion. Transmitral Doppler flow rivka grace is Grade I-abnormal relaxation pattern. RIGHT VENTRICLE The right ventricle is normal size. There is normal right ventricular wall thickness. The right ventr icular systolic function is normal. ATRIA The left atrium size is normal. The right atrium size is normal. The interatrial septum is intact wit h no evidence for an atrial septal defect or patent foramen ovale as noted on 2-D or Doppler imaging. AORTIC VALVE The aortic valve is normal in structure and function. Doppler and Color Flow revealed no significant aortic regurgitation. There is no significant aortic valvular stenosis. Calculated aortic valve area is 2.09 cm2 with maximum pressure gradient of 7 mmHg and mean pressure gradient of 4 mmHg. MITRAL VALVE The mitral valve is normal in structure and function. There is no evidence of mitral valve prolapse. There is no mitral valve stenosis. Doppler and Color-flow revealed trace to mild mitral regurgitation . TRICUSPID VALVE The tricuspid valve is normal in structure and function. Doppler and Color Flow revealed trace tricus pid regurgitation with an estimated PAP of 31 mmHg. There is no tricuspid valve stenosis. PULMONIC VALVE The pulmonic valve is not well visualized. Doppler and Color Flow revealed trace pulmonic valvular re gurgitation. GREAT VESSELS The aortic root is normal in size. The IVC is normal in size and collapses >50% with inspiration. PERICARDIAL EFFUSION There is no evidence of significant pericardial effusion. Critical Notification Critical Value: No <Conclusion> The left ventricle is normal size. The left ventricular systolic function is normal and the ejection fraction is within normal range. Left ventricular ejection fraction is 50 to 55%. Doppler and Color Flow revealed no significant aortic regurgitation. There is no significant aortic valvular stenosis. Doppler and Color-flow revealed trace to mild mitral regurgitation. Doppler and Color Flow revealed trace tricuspid regurgitation with an estimated PAP of 31 mmHg. Signed by : Trino Anne MD Electronically Approved : 04/25/2021 13:30:13
--- NOTE | 2021-04-29 12:09 | RAD ---
MR#: [id number] Date of Study: 04/25/2021 Ordering Physician: MARCE POWELL, Referring Physician: MARCE POWELL, Tech: Amberly Luis RT R, CT RDMS AB, T APPROVED REPORT Patient Location: OUT-PATIENT Indications PAD VELOCITY AND DOPPLER WAVEFORM ANALYSIS RIGHT cm/secWaveformSeverity LEFT cm/secWaveform Severity pCFA 186.0BiphasicModerate > 50%pCFA 93.0BiphasicSevere > 75% Prof Fem Art. 210.0BiphasicModerate > 50%Prof Fem Art. 225.0BiphasicSevere > 75% Fem Art Prox. 93.0BiphasicModerate > 50%Fem Art Prox. 79.0BiphasicModerate > 50% Fem Art Mid. 104.0BiphasicModerate > 50%Fem Art Mid. 99.0BiphasicModerate > 50% Fem Art Dist. 137.0BiphasicModerate > 50%Fem Art Dist. 68.0BiphasicModerate > 50% Pop Art(Fossa) 53.0BiphasicModerate > 50%Pop Art(AK) 59.0BiphasicModerate > 50% PLUMBING ENGINEER Prox. 26.0BiphasicModerate > 50%PLUMBING ENGINEER Prox. 28.0BiphasicModerate > 50% PLUMBING ENGINEER Dist. 22.0BiphasicModerate > 50%PLUMBING ENGINEER Dist. 37.0BiphasicModerate > 50% Per Art Mid. 25.0BiphasicModerate > 50%Per Art Mid. 27.0BiphasicModerate > 50% DRISS Prox. 30.0BiphasicModerate > 50%DRISS Prox. 43.0BiphasicModerate > 50% DPA 23BiphasicModerate > 50%DPA 27BiphasicModerate > 50% Findings Grayscale images of the right lower extremity arterial vessels demonstrates high-grade stenosis at th e level of the common femoral artery bifurcation and popliteal artery. Based on spectral waveforms a nd velocities in the below-knee vessels there is likely high-grade obstruction above the knee. Veloc ities are as noted above. On the left side again there are moderate to severe diffuse atherosclerotic calcifications involving the common femoral artery and proximal superficial femoral artery based on grayscale images. Velocit ies do not reveal high-grade obstruction in the WEB SERVICES MANAGER and SFA but there is greater than 75% stenosis in volving the profunda. Diminished waveforms again noted below the knee with three-vessel runoff consi stent with more proximal obstruction of likely greater than 50%. Critical Notification Critical Value: No <Conclusion> 1. Probable greater than 75% stenosis involving the bilateral WEB SERVICES MANAGER, SFA and popliteal arteries. 2. Bilateral three-vessel runoff although with diminished waveforms and velocities consistent with m ore proximal obstruction Signed by : Jim Felix, Electronically Approved : 04/29/2021 12:08:36
== END ==
LOC: ECHO 09:51
PROVIDERS: ATTEND Internal Medicine Cardiovascular Disease
DX: I34.0 Nonrheumatic mitral (valve) insufficiency (principal); I70.203 Unspecified atherosclerosis of native arteries of extremities, bilateral legs; I73.9 Peripheral vascular disease, unspecified; I25.10 Atherosclerotic heart disease of native coronary artery without angina pectoris; I10 Essential (primary) hypertension; E78.5 Hyperlipidemia, unspecified; F17.210 Nicotine dependence, cigarettes, uncomplicated
CPT/HCPCS: 93306; 93925

== ENCOUNTER 2021-05-21 06:57 | Outpatient (CLI) | payer OTHER ==
[~2021-05-21] VITALS: Ht 175.3 cm; Wt 70.5 kg
[2021-05-21] VITALS (15 sets, daily range): BP systolic 76–120; BP diastolic 50–75
[2021-05-21] MEDS ORDERED: IODIXANOL 320 MG/ML 100 ML VIAL. ONE (07:43)
[2021-05-21 07:50] LABS: HEMATOCRIT 41.3 % (39.0-53.0); HEMOGLOBIN 13.9 g/dL (13.0-17.5); RED BLOOD COUNT 4.33 x10^6/uL (4.30-5.70); RED CELL DISTRIBUTION WIDTH 16.6 % (11.5-14.5); WHITE BLOOD COUNT 6.2 x10^3/uL (4.0-11.0)
[2021-05-21 08:02] LABS: PROTHROMBIN TIME PATIENT 13.5 SEC (11.7-14.0)
[2021-05-21 08:03] LABS: CALCIUM 8.9 mg/dL (8.5-10.1); CREATININE 1.1 mg/dL (0.7-1.3); POTASSIUM 4.2 mmol/L (3.5-5.1)
[2021-05-21] MEDS ORDERED: MIDAZOLAM HCL/PF 5 MG/5 ML VIAL. ONE (08:06)
[2021-05-21] MEDS ORDERED: HEPARIN for IV BOLUS 10,000 UNIT/10 ML VIAL. ONE (08:07)
[2021-05-21] MEDS ORDERED: fentaNYL PF VIAL 100 MCG/2 ML VIAL ONE (08:07)
[2021-05-21] MEDS ORDERED: VERAPAMIL 5 MG/2 ML VIAL. ONE ×2 (08:07→08:15)
[2021-05-21] MEDS ORDERED: LIDOCAINE 1% PF 2 ML VIAL. ONE (08:07)
[2021-05-21] MEDS ORDERED: NITROGLYCERIN 200 MCG/2 ML SYRINGE FOR CATH/VASC LAB. ONE (08:08)
[2021-05-21] MEDS ORDERED: EMPA10TA PO (08:34)
[2021-05-21] MEDS ORDERED: RIVA10TA PO (08:34)
[2021-05-21] MEDS ORDERED: OXYC1TAB19 PO (08:34)
[2021-05-21] MEDS ORDERED: PREG150C PO (08:34)
[2021-05-21] MEDS ORDERED: LIDOCAINE 1% Multi-Dose 20 ML VIAL. ONE (08:53)
[2021-05-21] MEDS ORDERED: IODIXANOL 320 MG/ML 100 ML VIAL. IART ONE (09:00)
[2021-05-21] MEDS ORDERED: MIDAZOLAM HCL/PF 5 MG/5 ML VIAL. IV ONE (09:00)
[2021-05-21] MEDS ORDERED: LIDOCAINE 1% Multi-Dose 20 ML VIAL. INJ ONE (09:00)
[2021-05-21] MEDS ORDERED: fentaNYL PF VIAL 100 MCG/2 ML VIAL IV ONE (09:00)
[2021-05-21] MEDS ORDERED: HEPARIN for IV BOLUS 10,000 UNIT/10 ML VIAL. IV ONE (09:45)
--- NOTE | 2021-05-21 10:26 | PDOC ---
MODERATE SEDATION ASSESSMENT RISKS/ALTERNATIVES Risks/Alternatives Risks and alternatives of this type of sedation and procedure discussed with: RISK/ALTERNATIVES: Patient H & P ON CHART H & P H & P on chart and reviewed for co-morbid conditions and appropriate labs. H&P ON CHART: Yes STATUS PREG STATUS ASSESSED: N/A MEDS/ALLERGIES REVIEWED Meds/Allergies Reviewed Medications and Allergies including time and route of recently administered narcotics and sedatives. MEDS/ALLERGIES REVIEWED: Yes ASA RATING ASA RATING: III AIRWAY ASSESSMENT Airway Assessment Airway patency, oral function limitations, presence of caps, crowns, dentures, partials, and ability to extend neck assessed. AIRWAY ASSESSMENT: Yes MALLAMPATI SCORE MALLAMPATI SCORE: II PRE-SEDATION ASSESSMENT PRE-SEDATION ASSESSMENT: Yes MARCE POWELL MD May 21, 2021 10:26
[2021-05-21] MEDS ORDERED: 0.9 % SODIUM CHLORIDE 10 ML DISP.SYRIN. IV PRN (10:30)
[2021-05-21] MEDS ORDERED: IV 1/2 NORMAL SALINE 1,000 ML IV SCH (10:30)
--- NOTE | 2021-05-21 10:54 | CARD ---
MR#: [id number] Date of Study: 05/21/2021 Ordering Physician: MARCE POWELL, Referring Physician: MARCE POWELL, Tech: RT Marlene(R) APPROVED REPORT Patient StatusOUT-PATIENT Retort Unloader: RT Marlene(R) Procedure(s) performed: 1. Aortogram with bilateral lower extremity runoff 2. DIRECTOR OF BILLING to right external iliac artery FL TIME: 25.2 MIN DOSE: 44 GYCM2 CONTRAST: 76 MIN MODERATE SEDATION: 104 MIN INDICATION FOR PROCEDURE The indication(s) include : Peripheral artery disease s/p multiple percutaneous interventions in the past presenting with recent onset claudication claudication and abnormal arterial duplex scan. CASE TECHNIQUE After explaining the risks, benefits, and alternative options, informed consent was obtained from the patient. IV conscious sedation was used throughout procedure with appropriate monitoring and was per formed in the presence of a registered nurse who was an independent trained observer other than the whitney montes de oca performing the procedure. During this case, Fluoroscopy and low osmolar contrast were used f or imaging. Specimen(s) Removed: No Estimated Blood loss: 15 cc's. PROCEDURE NARRATIVE Patient was brought to the cardiac Visualizer and his right wrist and left groin were prepped and drape d in the usual fashion. We initially planned to obtain radial arterial access but patient did not colby ve any palpable pulse in his right wrist, probably from prior multiple angiograms. 10 cc of 2% lidoc vicki was infiltrated into the skin and subcutaneous tissues of the left groin for local anesthesia. Arterial access was obtained in the left common femoral artery and a 5 Rwandan sheath was inserted. 5 Rwandan pigtail catheter was positioned in the descending aorta and aortoiliac angiography was perfor med. The aortic jeanne was crossed over with the help of a 5 Rwandan crossover catheter which was the n exchanged to a 4 Rwandan angled glide catheter. With the tip positioned in the right external iliac artery, selective right lower extremity angiography was performed. With the tip of the catheter pos ition in the left external iliac artery, selective left lower extremity angiography was performed. T he following findings were noted: FINDINGS 1. No significant stenosis involving the distal descending aorta 2. The right common iliac artery showed long 70% stenosis. The left common iliac artery showed wide ly patent previously placed stent. 3. The right external iliac artery showed patent previously placed stent. The distal edge of the st ent however appeared deformed probably secondary to movement of equipment through the stent for right SFA intervention in the past. Just distal to the stent, there was 40% stenosis noted. The left ext ernal iliac artery showed 50% stenosis. The left internal iliac artery showed 100% chronic occlusion . 4. The common femoral arteries bilaterally did not show any significant stenosis. 5. The right superficial femoral artery showed 30% stenosis in the proximal segment, discrete 80% st enosis in the midsegment and a patent previously placed stent in the distal segment. The left superf icial femoral artery showed two tandem 80% stenosis in the proximal segment, 50% stenosis in the mids egment. 6. The popliteal arteries bilaterally did not show any significant stenosis. 7. There is three vessel runoff below the knee bilaterally in the proximal and mid segments. The di stal segments were not well visualized. The right anterior tibial artery showed 60% stenosis in the proximal segment and the left anterior tibial artery showed 70% stenosis in the proximal segment INTERVENTION We initially planned on intervening on the distal portion of the right external iliac artery stent fo llowed by DIRECTOR OF BILLING to the right SFA and staged DIRECTOR OF BILLING to right common iliac and left SFA at a later date. Th e sheath in the left groin was exchanged over a wire to a 6 Rwandan 45 cm destination sheath which was advanced over the aortic jeanne with the help of the crossover catheter and the tip was positioned i n the right external iliac artery. We initially advanced a 0.035 inch Glidewire across the deformed distal edge of the right EIA stent but several attempts to advance balloon was unsuccessful, probably since the wire was going through the stress. The wire was then changed to a 0.014 inch command ES g uidewire which was then used to recross the distal edge of the stent. A 3.0 x 20 mm [facility] ba lloon was used to dilate the distal edge without any success, probably again due to the wire being wi thin the stress rather than true lumen due to the deformed stent. Further attempts were abandoned wi plans for referral to vascular surgery for possible surgical revascularization. Patient tolerated the procedure well. Hemostasis was achieved using Mynx closure device. There were no immediate com plications. Conclusion 1. Severe bilateral lower extremity peripheral artery disease as described above. The previously pl aced stents in the left common iliac and right superficial femoral arteries were widely patent. The stent that was placed in the right external iliac artery showed deformed distal edge. 2. DIRECTOR OF BILLING to the distal edge of the right external iliac artery. Recommendations Vascular surgery referral for surgical revascularization Vascular risk factor modification including smoking cessation and regular exercise regimen Signed by : Marce Powell, Electronically Approved : 05/21/2021 10:54:08
--- NOTE | 2021-05-21 13:40 | NUR ---
Patient's PIV removed, VS stable. No bleeding at L groin access site. No sign of hematoma. Instructions provided on site care, sedation. Patient and verbalized understanding. RN emphasized importance of not using L leg and risk of bleeding. Patient's states they will followup with Dr. Lock for further instructions/referral to vascular surgeon. All belongings, including clothing and cell phone, taken w/ patient at time of d/c. driving vehicle home.
== END 2021-05-21 13:44 | disposition home or self-care (01) ==
LOC: CCL 06:57
PROVIDERS: ATTEND Internal Medicine Cardiovascular Disease
DX: I73.9 Peripheral vascular disease, unspecified (principal); I25.10 Atherosclerotic heart disease of native coronary artery without angina pectoris; I10 Essential (primary) hypertension; E78.00 Pure hypercholesterolemia, unspecified; E11.9 Type 2 diabetes mellitus without complications; F17.210 Nicotine dependence, cigarettes, uncomplicated; Z79.82 Long term (current) use of aspirin; Z79.84 Long term (current) use of oral hypoglycemic drugs; Z79.899 Other long term (current) drug therapy; Z98.890 Other specified postprocedural states
CPT/HCPCS: 36415; 37220; 75625; 75716; 80048; 85027; 85610; 99152; 99153; C1725; C1760; C1769; C1894; J1644; J2250; J3010; J3490; Q9967; G0269

== ENCOUNTER → 2021-06-21 | Outpatient (CLI) | payer OTHER ==
[2021-05-21 13:30] VITALS: BP 112/60
[~2021-06-21] MED LIST changes: +EMPA10TA PO; +IOHEXOL 350 MG/ML 100 ML VIAL. IV ONE; +OXYC1TAB19 PO; +PREG150C PO; +RIVA10TA PO
--- NOTE | 2021-06-21 09:56 | RAD ---
Site ID: [id number] EXAMINATION: CTA ABDOMEN AND PELVIS WITHOUT IV CONTRAST. Technique: Axial images with coronal and sagittal reconstructions with MIP technique are performed of abdomen and pelvis with angiogram protocol. 90 mL of Omnipaque 350 administered intravenously. One or more of the following radiation dose reduction techniques was used: automated exposure control , adjustment of mA and/or KV according to patient size, and/or utilization of iterative reconstructio n technique. HISTORY: 56 years Male Reason: PAD / . COMPARISON: None. FINDINGS: The abdominal aorta is normal in caliber. Multifocal calcified plaque is seen with no high-grade sten osis. * Pelvic CTA: RIGHT: Common iliac: Multifocal plaque with the estimated 50-60 percent stenosis proximally. Internal iliac: 70 percent stenosis proximally External iliac: Patent stent with the estimated the 90 percent stenosis just distal to the stent. The right common femoral artery demonstrate 70 percent stenosis with calcified plaque. The proximal r ight SFA demonstrate small caliber vessel with the multifocal disease, degree of stenosis is difficul t to estimate accurately due to the calcium artifacts. LEFT: Common iliac: Patent stent proximally, no significant stenosis Internal iliac: Severe stenosis proximally External iliac: Prominent calcified plaque with estimated 40 percent stenosis. Left OPTOMETRIST demonstrate prominent calcified plaque with estimated 60-70 percent stenosis. The proximal S FA demonstrates multifocal plaque with the small caliber vessel. There is proximal 60 percent stenosi s. The SMA and demonstrates a segment of 80 percent stenosis proximally starting 1 cm from the origin. T he celiac catheter artery demonstrate mild stenosis proximally. The SAHGGY origin appears to be stenotic , difficult to evaluate with accuracy. The renal arteries demonstrate stenosis bilaterally in the proximal segment, 80 percent on the left a nd 70 percent on the right from soft plaque. Soft tissue findings demonstrate the suggestion of the nodular cirrhotic contour of the liver. There are from gallbladder stones with contracted gallbladder. IMPRESSION: 1. Moderate to severe multifocal stenosis seen in the iliac and femoral arteries as described. 2. Multifocal mesenteric and renal artery stenosis. 3. Liver cirrhosis. No ascites. 4. Contracted gallbladder with calcified stones. Electronically signed by: Jerry Damon MD (06/21/2021 9:53 AM) [id number]
== END ==
LOC: CT 08:07
PROVIDERS: ATTEND Surgery Vascular Surgery
DX: I70.223 Atherosclerosis of native arteries of extremities with rest pain, bilateral legs (principal); I70.1 Atherosclerosis of renal artery; K74.60 Unspecified cirrhosis of liver; K80.21 Calculus of gallbladder without cholecystitis with obstruction
CPT/HCPCS: 74174; Q9967

== ENCOUNTER 2021-07-31 06:59 | Outpatient (CLI) | payer OTHER ==
[2021-07-31] VITALS (10 sets, daily range): BP systolic 60–119; BP diastolic 62–72
[~2021-07-31] VITALS: Ht 175.3 cm; Wt 72.7 kg
[~2021-07-31 06:59] MED LIST changes: -IOHEXOL 350 MG/ML 100 ML VIAL. IV ONE; +OXYC1TAB15 PO
[2021-07-31] MEDS ORDERED: LIDOCAINE 1% Multi-Dose 20 ML VIAL. ONE (07:38)
[2021-07-31] MEDS ORDERED: IODIXANOL 320 MG/ML 100 ML VIAL. ONE (07:38)
[2021-07-31 07:41] LABS: HEMATOCRIT 41.7 % (39.0-53.0); HEMOGLOBIN 13.8 g/dL (13.0-17.5); RED BLOOD COUNT 4.4 x10^6/uL (4.30-5.70); RED CELL DISTRIBUTION WIDTH 13.4 % (11.5-14.5); WHITE BLOOD COUNT 6.2 x10^3/uL (4.0-11.0)
[2021-07-31 07:43] LABS: CALCIUM 8.4 mg/dL (8.5-10.1); CREATININE 1.1 mg/dL (0.7-1.3)
--- NOTE | 2021-07-31 08:04 | PHYS DOC ---
MODERATE SEDATION ASSESSMENT RISKS/ALTERNATIVES Risks/Alternatives Risks and alternatives of this type of sedation and procedure discussed with: RISK/ALTERNATIVES: Patient H & P ON CHART H & P H & P on chart and reviewed for co-morbid conditions and appropriate labs. H&P ON CHART: Yes STATUS PREG STATUS ASSESSED: Yes MEDS/ALLERGIES REVIEWED Meds/Allergies Reviewed Medications and Allergies including time and route of recently administered narcotics and sedatives. MEDS/ALLERGIES REVIEWED: Yes ASA RATING ASA RATING: II AIRWAY ASSESSMENT Airway Assessment Airway patency, oral function limitations, presence of caps, crowns, dentures, partials, and ability to extend neck assessed. AIRWAY ASSESSMENT: Yes MALLAMPATI SCORE MALLAMPATI SCORE: I PRE-SEDATION ASSESSMENT PRE-SEDATION ASSESSMENT: Yes (No personal or family hx of anesthetic complications) BOYD BLANTON MD Jul 31, 2021 08:04
--- NOTE | 2021-07-31 08:09 | PDOC1 ---
History and Physical Date of Procedure Date of Admission 07/31/21 Procedure Procedure Right LE angiography with possible intervention Indication Indication Rest pain in RLE s/p recent right femoral endarterectomy and right external iliac stent to address a stent fracture of a previously placed right external iliac stent. History of Present Illness Reason for Visit 56 M well known to me with hx of PAD s/p iliac stents. He ahd a stent fracture requiring surgical correction. he continues to have rest pain postoperatively without improvement in MANN will proceed with RLE angiogram and possible intervention to address rest pain of the right foot. he has no recent illness, deneis chest pain, dyspnea or other acute concerns. Past Medical History Cardiovascular: CAD Pulmonary: COPD Past Surgical History Past Surgical History: Other (Rigth CFEA) Current Medications Current Medications Current Medications Lidocaine HCl (Lidocaine 1% 20ml Vial) 20 ml STK-MED ONCE .ROUTE ; Start 07/31/21 at 07:38; Stop 07/31/21 at 07:38; Status DC Iodixanol (Visipaque 320) 100 ml STK-MED ONCE .ROUTE ; Start 07/31/21 at 07:38; Stop 07/31/21 at 07:38; Status DC Heparin Sodium/ Sodium Chloride 1,000 ml @ As Directed STK-MED ONCE .ROUTE ; Start 07/31/21 at 07:38; Stop 07/31/21 at 07:38; Status DC Active Scripts Active Percocet 5-325 Mg Tablet (Oxycodone/Acetaminophen) 1 Each Tablet 1 Tab PO PRN Q4HRS PRN 7 Days Percocet 7.5-325 Mg Tablet (Oxycodone/Acetaminophen) 1 Each Tablet 1 Tab PO PRN Q4HRS PRN 5 Days Reported Percocet 7.5-325 Mg Tablet (Oxycodone/Acetaminophen) 1 Each Tablet 1 Tab PO HS PRN Jardiance (Empagliflozin) 10 Mg Tablet 10 Mg PO DAILY Xarelto (Rivaroxaban) 10 Mg Tablet 2.5 Mg PO BID Lyrica (Pregabalin) 150 Mg Capsule 150 Mg PO BID 30 Days Metformin Hcl 1,000 Mg Tablet 1,000 Mg PO BIDWMEALS RESUME ON 05/23/21. Lovastatin 20 Mg Tablet 1 Tab PO DAILYWSUP Hydroxyzine Pamoate 25 Mg Capsule 1 Cap PO BID Carvedilol (Carvedilol) 3.125 Mg Tablet 3.125 Mg PO BIDWMEALS Enalapril Maleate 10 Mg Tablet 1 Tab PO DAILY Men's Daily Formula Capsule (Multivits-Minerals/Fa/Lycopene) 1 Each Capsule 1 Each PO DAILY Vitamin C (Ascorbic Acid) 500 Mg Capsule.er 1,000 Mg PO DAILY Vitamin B Complex 1 Each Capsule 1 Each PO DAILY Aspirin Ec (Aspirin) 81 Mg Tablet.dr 1 Tab PO DAILY Allergies Allergies: Coded Allergies: hydrocodone (Verified Allergy, Intermediate, Itching, 06/27/21) Physical Exam Vital Signs Vital Signs Date Time Temp Pulse Resp B/P (MAP) Pulse Ox O2 Delivery O2 Flow Rate FiO2 07/31/21 07:45 98.2 77 20 119/72 (88) 98 Room Air 98.2 Lungs: Clear to auscultation Heart: Regular rate, Other (Palpable femoral pulses bilaterally) Neuro: Normal speech Psych/Mental Status: Mental status NL Assessment Assessment RLE rest pain Plan Plan Proceed with right lwoer extremity angiography and possible intervention. Discussed risks of bleeding, infection, anesthetic complication, need for future procedure, embolization and nontherapeutic intervention. Patient understands and agrees to proceed. BOYD BLANTON MD Jul 31, 2021 08:09
[2021-07-31] MEDS ORDERED: METH80VI IJ (08:12)
[2021-07-31] MEDS ORDERED: MIDAZOLAM HCL/PF 2 MG/2 ML VIAL. ONE (08:23)
[2021-07-31] MEDS ORDERED: HEPARIN for IV BOLUS 10,000 UNIT/10 ML VIAL. ONE (08:23)
[2021-07-31] MEDS ORDERED: fentaNYL PF VIAL 100 MCG/2 ML VIAL ONE (08:23)
[2021-07-31] MEDS ORDERED: fentaNYL PF VIAL 100 MCG/2 ML VIAL IV ONE (09:15)
[2021-07-31] MEDS ORDERED: LIDOCAINE 1% Multi-Dose 20 ML VIAL. INJ ONE (09:15)
[2021-07-31] MEDS ORDERED: IODIXANOL 320 MG/ML 100 ML VIAL. IART ONE (09:15)
[2021-07-31] MEDS ORDERED: MIDAZOLAM HCL/PF 2 MG/2 ML VIAL. IV ONE (09:15)
[2021-07-31] MEDS ORDERED: CONTRAST GIVEN. MC PRN (09:30)
--- NOTE | 2021-07-31 09:39 | DISCH ---
DISCHARGE INSTRUCTIONS Condition on Discharge Condition on Discharge: Stable Activity After Discharge Activity Instructions for Disc: Activity as tolerated Bathing Instructions: Shower-keep dressing dry (Remove dressing on 08/02/21. May shower on 08/02/21. May submerge incision once completely healed but no bath until incision completely healed) Lifting Instructions after Dis: No heavy lifting, No pulling or pushing, Do not lift >10 pounds Exercise Instruction after Dis: Progress as tolerated Driving Instructions after Dis: Do not drive today, Other, see below Weight Bearing Status after Di: Full weight bearing Diet after Discharge Diet after Discharge: Cardiac Wound Incision Care Wound/Incision Care: Reinforce dressing PRN Contacting the DR. after DC Call your doctor for: Fever greater than 100 BOYD BLANTON MD Jul 31, 2021 09:38
[2021-07-31] MEDS ORDERED: HYDROcodone/APAP 5/325MG 1 TAB TABLET PO PRN ×2 (09:45)
--- NOTE | 2021-07-31 09:48 | PDOC4 ---
OPERATIVE NOTE Date: Date: Jul 31, 2021 Pre-Op Diagnosis: 1. Peripheral arterial disease with rest pain, right lower extremity 2. Tobacco abuse 3. Diabetes mellitus Post-Op Diagnosis: Same Procedure Performed: 1. Abdominal aortogram 2. Right lower extremity angiography 3. Selective catheter placement second order vessel, right common femoral artery 4. Ultrasound guided access left common femoral artery 5. Physician supervised moderate sedation, total time 58 minutes Surgeon: Johana Brandt Anesthesia Type: Moderate sedation Blood Loss: <10 cc Specimans Obtained: None Findings: The aortoiliac system is widely patent with visualized bilateral common iliac artery stents that were widely patent. The right external iliac artery stent is widely patent with the newly placed Viabahn clearly covering the previously fractured stent. The endarterectomized common femoral artery is widely patent with a widely patent right profunda femoris. The SFA occludes shortly after its origin about a centimeter after its origin. There is faint reconstitution of the superficial femoral artery in the mid thigh. The popliteal artery then occludes at the area of the previous popliteal artery stent. There is then reconstitution of the below-knee popliteal artery with a patent anterior tibial artery and peroneal artery with two vessel outflow into the foot. The right posterior tibial artery faintly opacifies with evidence of severe stenosis and distal occlusion. Complications: None Operative Note: The patient was positioned supine upon the [employer] table. A sedation nurse was present and appropriate cardiac and respiratory monitoring was in place throu ghout the procedure. The left groin was prepped and draped in standard sterile fashion. Surgical timeout was performed. Moderate sedation under physician supervision was administered throughout the procedure with a total sedation time of 58 minutes and a total of 1 mg of Versed and 50 mcg of fentanyl administered. The left groin was anesthetized with 1% lidocaine and the left common femoral artery was accessed under ultrasound guidance with fluoroscopy confirming access with a micropuncture needle at the femoral head. The common femoral artery appeared disease on ultrasound and image of the common femoral artery access was saved to the medical record. I then accessed the left common femoral artery with a micropuncture sheath and over a Bentson wire upsized to a 5 [place] sheath in the left common femoral artery. I then advanced an Omni Flush catheter into the aorta and performed an aortogram which demonstrated widely patent aortoiliac system with the previously placed bilateral common iliac stents being widely patent. The left external iliac artery has a short segment stenosis >60% that was previously imaged but he remains asymptomatic on the left side. The left common femoral artery is diseased with diffuse plaque causing 50% stenosis. The right external iliac artery viabahn stent is widely patent with excellent inflow into the right common femoral artery. The right common femoral artery was then selectively catheterized from the aorta traversing the common and external iliac artery with the omni flush catheter. Stepwise angiography of the right lower extremity was then performed. The profunda is widely patent on the right. The SFA occludes 1 cm distal to the bifurcation at the distal end of the femoral patch. There is long segment occlusion of the SFA with reconstitution of the below knee popliteal artery and runoff to the foot via the anterior tibial and peroneal artery with long segment occlusion of the right posterior tibial artery. At this point given the subacute nature of the right SFA occlusion with a large component of thrombus in a chronically diseased artery the decision was made to stop the procedure and plan for a right lower extremity bypass for revascularization. The 5 Fr sheath was then removed and hemostasis obtained with manual pressure. The patient was then transferred to the recovery room in stable condition. JOHANA BRANDT MD Jul 31, 2021 09:48
--- NOTE | 2021-07-31 11:37 | RAD ---
EXAM: Bilateral upper and lower extremity venous mapping. HISTORY: Preoperative evaluation. TECHNIQUE: Sonographic imaging of the upper and lower extremity veins was performed. COMPARISON: None. FINDINGS: The right greater saphenous vein measures 3.4 mm within the proximal thigh, 2.7 mm within t he upper mid thigh, 1.4 mm within the mid thigh, 1.7 mm within the distal thigh, 1.6 mm within the pr oximal calf, 1.7 mm within the mid calf, and 2.0 mm at the ankle. The right lesser saphenous vein measures 1.1 mm within the proximal calf, 0.7 mm within the mid calf and 1.0 mm within the distal calf. The left greater saphenous vein measures 5.0 mm within the proximal thigh, 1.7 mm within the upper mi d thigh, 1.6 mm within the mid thigh, 1.5 mm within the distal thigh, 1.5 mm within the proximal calf , 1.2 mm within the mid calf and 1.2 mm at the ankle. The left lesser saphenous vein measures 1.4 mm within the proximal calf, 1.4 mm within the mid calf a nd 1.3 mm within the distal calf. The right cephalic vein measures 1.3 mm within the proximal upper arm, 1.5 mm within the mid upper ar m, 1.9 mm within the distal upper arm, 1.3 mm within the proximal forearm, 1.4 mm within the mid fore arm and 1.4 mm within the distal forearm. The right basilic vein measures 3.5 mm within the proximal upper arm, 3.3 mm within the mid upper arm , 3.1 mm within the distal upper arm, 2.4 mm within the proximal forearm, 1.7 mm within the mid forea rm, and 1.1 mm within the distal forearm. The left cephalic vein measures 1.0 mm within the proximal upper arm, 0.7 mm within the mid upper arm , 0.7 mm within the distal upper arm, 1.1 mm within the proximal forearm, 1.2 mm within the mid forea rm and 1.1 mm within the distal forearm. The right basilic vein measures 4.0 mm within the proximal upper arm, 2.5 mm within the mid upper arm , 2.6 mm within the distal upper arm, 1.6 mm within the proximal forearm, 1.1 mm within the mid forea rm, and 1.3 mm within the distal forearm. IMPRESSION: Bilateral upper and lower extremity vein caliber measurements for operative planning, crishtian cribed above. Electronically signed by: Tamera Smith MD (07/31/2021 11:35 AM) [id number]
--- NOTE | 2021-07-31 13:27 | NUR ---
Discharge Note: YESENIA HINDS Discharge instructions and discharge home medications reviewed with Patient and a copy given. All questions have been answered and understanding verbalized. The following instructions and handouts were given: groin site care and adult moderate sedation Discontinued lines and drains: Peripheral IV intact. Patient discharged to Home or Self Care withSpousevia Wheelchair. Patient's met us at Outpatient entrance for patient to go home.
== END 2021-07-31 13:29 | disposition home or self-care (01) ==
LOC: CCL 06:59
PROVIDERS: ATTEND Surgery Vascular Surgery
DX: I73.9 Peripheral vascular disease, unspecified (principal); E11.9 Type 2 diabetes mellitus without complications; I25.10 Atherosclerotic heart disease of native coronary artery without angina pectoris; J44.9 Chronic obstructive pulmonary disease, unspecified; I10 Essential (primary) hypertension; E78.00 Pure hypercholesterolemia, unspecified; F17.210 Nicotine dependence, cigarettes, uncomplicated; Z79.82 Long term (current) use of aspirin; Z79.84 Long term (current) use of oral hypoglycemic drugs; Z79.899 Other long term (current) drug therapy; Z98.890 Other specified postprocedural states
CPT/HCPCS: 36246; 36415; 75625; 75710; 76937; 80048; 85027; 85610; 93970; 99152; 99153; C1769; C1894; J1644; J2250; J3010; J3490; Q9967